=== PATIENT | male | born 1945 | race Caucasian/White ===

== ENCOUNTER → 2020-08-10 12:39 | Outpatient (BNVA) | payer MEDICARE, OTHER, SELFPAY | PROVIDERS: PCP Family Medicine; Visit Provider Nurse Practitioner Family | DX: S62.522A Displaced fracture of distal phalanx of left thumb, initial encounter for closed fracture (principal); X58.XXXA Exposure to other specified factors, initial encounter; S61.1 Open wound of thumb with damage to nail | CPT/HCPCS: 73130 ==